=== PATIENT | female | born 2000 | race Caucasian/White ===

== ENCOUNTER 2022-02-28 21:06 | Emergency (ER) | payer BC ==
[~2022-02-28] VITALS: Ht 157.5 cm; Wt 70.5 kg
[2022-02-28] MEDS ORDERED: AMOXICILLIN 8751 TAB PO (21:50)
[2022-02-28 22:16] VITALS: BP 142/95; PULSE 105
== END 2022-02-28 22:16 | disposition home or self-care (01) ==
LOC: COL.ER 21:06
DX: S81.812A Laceration without foreign body, left lower leg, initial encounter (principal); Z28.310 Unvaccinated for COVID-19; Z23 Encounter for immunization; W54.0XXA Bitten by dog, initial encounter